=== PATIENT | female | born 1975 | race Caucasian/White ===

== ENCOUNTER → 2020-05-22 | Outpatient (CLI) | payer BC ==
--- NOTE | 2020-05-22 15:45 | Diagnostic Imaging Report ---
PROCEDURE: CT sinuses without contrast TECHNIQUE: Multiple contiguous axial images were obtained through the sinuses without the use of intravenous contrast. Coronal and sagittal reformations were then performed. Auto Exposure Controls were utilized during the CT exam to meet ALARA standards for radiation dose reduction. INDICATION: Chronic sinusitis. FINDINGS: The frontal sinuses are clear. Ethmoid air cells and sphenoid sinus are clear. Bilateral maxillary sinuses are clear. No mucosal thickening or air-fluid levels are identified. Ostiomeatal complexes are patent bilaterally. No significant nasal septal deviation is seen. Mastoids are well aerated. IMPRESSION: No evidence of sinusitis. Dictated by: Dictated on workstation # [id number]
== END ==
LOC: RAD 15:12
PROVIDERS: ATTEND Internal Medicine
DX: J32.1 Chronic frontal sinusitis (principal)
CPT/HCPCS: 70486

== ENCOUNTER 2020-06-12 10:09 | Outpatient (RCR) | payer BC ==
[2020-06-03 07:30] VITALS: BP 133/63
[2020-06-03] MEDS: IRON SUCROSE 200 MG/10 ML (VENOFER) VIAL IV SCH (08:16)
[2020-06-05 08:35] VITALS: BP 124/72
[2020-06-05] MEDS: IRON SUCROSE 200 MG/10 ML (VENOFER) VIAL IV SCH (08:43)
[2020-06-08] MEDS: IRON SUCROSE 200 MG/10 ML (VENOFER) VIAL IV SCH (07:18)
[2020-06-08 07:50] VITALS: BP 112/72
[2020-06-10 07:30] VITALS: BP 113/70
[2020-06-10] MEDS: IRON SUCROSE 200 MG/10 ML (VENOFER) VIAL IV SCH (07:49)
[~2020-06-12] VITALS: Ht 162.6 cm
[~2020-06-12 10:09] MED LIST: IRON SUCROSE 200 MG/10 ML (VENOFER) VIAL IV ONE
[2020-06-12] MEDS: IRON SUCROSE 200 MG/10 ML (VENOFER) VIAL IV SCH (10:25)
[2020-06-12 10:57] VITALS: BP 107/75
== END 2020-06-12 11:10 | disposition home or self-care (01) ==
LOC: SDC 10:09
PROVIDERS: ATTEND Internal Medicine
DX: E61.1 Iron deficiency (principal)
CPT/HCPCS: 96365

== ENCOUNTER → 2020-11-16 | Outpatient (CLI) | payer BC ==
--- NOTE | 2020-11-16 17:21 | Diagnostic Imaging Report ---
EXAM: Left shoulder pain. EXAM DATE: 11/16/2020. COMPARISON: None. HISTORY: Left shoulder pain. TECHNIQUE: Three views of the left shoulder. FINDINGS: There is linear cortical irregularity which is partially visualized within the mid left humerus. The proximal humerus at the left shoulder joint demonstrates no acute fracture, dislocation, or destructive osseous process. There is mild acromioclavicular osteoarthritis. The humeral head is situated appropriately within the glenohumeral joint. The soft tissues are unremarkable. Visualized lungs are clear. IMPRESSION: 1. No acute osseous abnormality of the left shoulder. 2. Partially visualized linear cortical irregularity within the mid left humerus. This may be artifact from overlying material or soft tissue, but recommend dedicated left humerus radiograph if there is concern for fracture or injury to this location. Dictated by: Dictated on workstation # [id number]
== END ==
LOC: RAD 16:36
PROVIDERS: ATTEND Internal Medicine
DX: M25.512 Pain in left shoulder (principal)
CPT/HCPCS: 73030

== ENCOUNTER → 2020-11-19 | Outpatient (CLI) | payer BC ==
--- NOTE | 2020-11-19 19:19 | Diagnostic Imaging Report ---
EXAMINATION: Left humerus radiographs, 2 views. COMPARISON: None. HISTORY: 44-year-old female, left arm pain. FINDINGS: There are mild acromioclavicular degenerative changes without large undersurface osteophyte. There is no widening of the acromioclavicular joint. There is no identified acute fracture. There is no identified radiopaque foreign body. IMPRESSION: 1. Mild acromioclavicular degenerative changes. 2. No acute bony abnormality of the left humerus. Dictated by: Dictated on workstation # [id number]
== END ==
LOC: RAD 16:57
PROVIDERS: ATTEND Internal Medicine
DX: M19.012 Primary osteoarthritis, left shoulder (principal)
CPT/HCPCS: 73060

== ENCOUNTER → 2020-11-30 | Outpatient (CLI) | payer BC | LOC: RAD 08:36 | PROVIDERS: ATTEND Nurse Practitioner Family | DX: S46.212D Strain of muscle, fascia and tendon of other parts of biceps, left arm, subsequent encounter (principal); M75.22 Bicipital tendinitis, left shoulder; X58.XXXD Exposure to other specified factors, subsequent encounter ==

== ENCOUNTER 2021-01-21 16:29 | Outpatient (RCR) | payer BC | END 2021-01-21 16:53 | disposition home or self-care (01) | PROVIDERS: ATTEND Orthopaedic Surgery | DX: S43.431D Superior glenoid labrum lesion of right shoulder, subsequent encounter (principal); M75.22 Bicipital tendinitis, left shoulder; M75.02 Adhesive capsulitis of left shoulder ==

== ENCOUNTER → 2021-01-29 | Outpatient (CLI) | payer BC | LOC: LABNPT 06:48 | PROVIDERS: ATTEND Orthopaedic Surgery | DX: Z20.822 Contact with and (suspected) exposure to COVID-19 (principal) | CPT/HCPCS: 87635 ==

== ENCOUNTER → 2021-05-24 | Outpatient (RCR) | payer BC | END | disposition home or self-care (01) | PROVIDERS: ATTEND Nurse Practitioner Family | DX: M25.512 Pain in left shoulder (principal); I10 Essential (primary) hypertension; Z98.890 Other specified postprocedural states ==

== ENCOUNTER 2021-06-17 16:50 | Outpatient (RCR) | payer BC | END 2021-06-17 17:05 | disposition home or self-care (01) | PROVIDERS: ATTEND Nurse Practitioner Family | DX: M25.512 Pain in left shoulder (principal); I10 Essential (primary) hypertension; Z98.890 Other specified postprocedural states; Z96.612 Presence of left artificial shoulder joint ==

== ENCOUNTER → 2022-01-28 | Outpatient (CLI) | payer BC ==
--- NOTE | 2022-01-28 18:40 | Diagnostic Imaging Report ---
INDICATION: Routine screening. COMPARISON: Prior mammogram from 04/24/2020. EXAMINATION: 2D and 3D bilateral screening mammography was performed with CAD. The current study was also evaluated with a Computer Aided Detection (CAD) system. FINDINGS: Both breasts are heterogeneously dense, limiting the sensitivity of mammography. The parenchymal pattern is stable. No mass or malignant-appearing microcalcifications are seen. Axillae are unremarkable. IMPRESSION: No mammographic features suspicious for malignancy are identified. ACR BI-RADS Category 1: Negative. Result letter will be mailed to the patient. Note: At least 10% of breast cancer is not imaged by mammography. Dictated by: Dictated on workstation # [id number]
== END ==
LOC: RAD 10:15
PROVIDERS: ATTEND Internal Medicine
DX: Z12.31 Encounter for screening mammogram for malignant neoplasm of breast (principal)
CPT/HCPCS: 77063; 77067

== ENCOUNTER 2023-02-03 12:51 | Outpatient (CLI) | payer BC ==
[~2023-02-03] VITALS: Ht 162.6 cm; Wt 104.5 kg
[2023-02-03 13:00] VITALS: BP 117/81
[2023-02-03] MEDS ORDERED: IRON DEXTRAN 25 MG/NS 6.25 ML TOTAL VOLUME IV ONE ×3 (13:15)
[2023-02-03] MEDS ORDERED: IRON DEXTRAN 1,000 MG/NS 250 ML IVPB IV ONE ×2 (13:30)
== END 2023-02-03 15:22 | disposition home or self-care (01) ==
LOC: SDC 12:51
PROVIDERS: ATTEND Internal Medicine
DX: D50.9 Iron deficiency anemia, unspecified (principal)
CPT/HCPCS: 96365

== ENCOUNTER → 2023-02-10 | Outpatient (CLI) | payer BC ==
--- NOTE | 2023-02-10 09:40 | Diagnostic Imaging Report ---
INDICATION: Routine screening. Comparison is made with prior mammogram from 01/28/2022. 2-D and 3-D bilateral screening mammography was performed with CAD. Scattered fibroglandular densities are identified bilaterally. The parenchymal pattern is stable. No mass or malignant-appearing microcalcifications are seen. Axillae are unremarkable. IMPRESSION: No mammographic features suspicious for malignancy are identified. ACR BI-RADS Category 1: Negative. Result letter will be mailed to the patient. Note: At least 10% of breast cancer is not imaged by mammography. BI-RADS Category 1 Dictated by: Dictated on workstation # [id number]
== END ==
LOC: RAD 07:53
PROVIDERS: ATTEND Internal Medicine
DX: Z12.31 Encounter for screening mammogram for malignant neoplasm of breast (principal)
CPT/HCPCS: 77063; 77067